=== PATIENT | male | born 1985 | race Caucasian/White ===

== ENCOUNTER 2018-06-23 09:29 | Emergency (ER) | payer BC ==
[2018-06-23] MEDS ORDERED: Doxycycline 100 MG Cap PO ONE (10:10)
--- NOTE | 2018-06-23 10:11 | EDM.PDOC ---
ED HPI GENERAL MEDICAL PROBLEM - General Chief Complaint: Skin Complaint Stated Complaint: INFECTED TATTOO Time Seen by Provider: 06/23/18 09:55 Source of Information: Reports: Patient, RN Notes Reviewed - History of Present Illness INITIAL COMMENTS - FREE TEXT/NARRATIVE: 32-year-old male comes in with concern about infection of recently acquired tattoo. He had tattoo placed on the left forearm and distal upper arm 10 days ago. Evening there was some pus draining from a small area left arm just above the elbow and then also some crusting of an area left mid dorsal forearm. No fever chills. No further drainage this morning. - Related Data Allergies Allergy/AdvReac Type Severity Reaction Status Date / Time Penicillins Allergy Anaphylactic Verified 06/23/18 09:40 Shock Home Meds: Home Meds Doxycycline [Vibramycin] 100 mg IV Q12H #20 vial 06/23/18 [Rx] Mupirocin Oint [Bactroban Oint] 22 gm .XX BID #1 tube 06/23/18 [Rx] Past Medical History - Past Surgical History Other Musculoskeletal Surgeries/Procedures:: r hand surgery, lumbar surgery Social & Family History - Tobacco Use Smoking Status *Q: Never Smoker Second Hand Smoke Exposure: No - Caffeine Use Caffeine Use: Reports: None ED ROS GENERAL - Review of Systems Review Of Systems: See Below Constitutional: Denies: Fever, Chills HEENT: Reports: No Symptoms Respiratory: Reports: No Symptoms Cardiovascular: Reports: No Symptoms GI/Abdominal: Denies: Nausea, Vomiting Musculoskeletal: Reports: Other (No major discomfort left arm or forearm) Skin: Reports: Erythema (Mild localized left forearm) ED EXAM, SKIN/RASH Exam: See Below General Appearance: Alert, No Apparent Distress Throat/Mouth: Normal Inspection Head: No: Facial Swelling Neck: Supple Respiratory/Chest: No Respiratory Distress, Lungs Clear Skin: Warm, Dry, Tattoo(s) (Large tattoo left forearm and also distal left upper arm. There is an area of erythema distal left upper arm and also area of erythema left mid dorsal forearm, no drainage at this time. Very mild localized tenderness.) Course - Vital Signs Last Recorded V/S: Last Vital Signs Temp 98.0 F 06/23/18 09:35 Pulse 86 06/23/18 09:35 Resp 15 06/23/18 09:35 BP 148/75 H 06/23/18 09:35 Pulse Ox 100 06/23/18 09:35 - Orders/Labs/Meds Meds: Medications Discontinued Medications Generic Name Dose Route Start Last Admin Trade Name Roxanne PRN Reason Stop Dose Admin Doxycycline Hyclate 100 mg 06/23/18 10:10 06/23/18 10:13 Vibramycin PO 06/23/18 10:11 100 mg ONETIME ONE Administration Departure - Departure Time of Disposition: 22:00 Disposition: Home, Self-Care 01 Condition: Fair Clinical Impression: Cellulitis Qualifiers: Site of cellulitis: extremity Site of cellulitis of extremity: upper extremity Laterality: left Qualified Code(s): L03.114 - Cellulitis of left upper limb - Discharge Information Prescriptions: Doxycycline [Vibramycin] 100 mg IV Q12H #20 vial Mupirocin Oint [Bactroban Oint] 22 gm .XX BID #1 tube Instructions: Cellulitis, Adult, [id number] Referrals: PCP,None [Primary Care Provider] - Forms: ED Department Discharge Additional Instructions: Doxycycline antibiotic 100 mg twice daily for 10 days, Bactroban ointment to affected areas of left arm twice daily until symptoms of infection resolving. Follow-up clinic as needed.
== END 2018-06-23 10:31 | disposition home or self-care (01) ==
LOC: JD.ED 09:29
DX: L03.114 Cellulitis of left upper limb (principal); Z88.0 Allergy status to penicillin
CPT/HCPCS: 99283; A9270

== ENCOUNTER 2019-11-29 11:06 | Emergency (ER) | payer OTHER, BC ==
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
--- NOTE | 2019-11-29 12:23 | CT ---
CT cervical spine Technique: Multiple axial sections through the cervical spine were obtained from above C1 inferiorly to the bottom of T2. Reconstructed coronal and sagittal images were obtained. Comparison: No prior cervical spine imaging is available. Findings: Minimal anterior and posterior osteophytes are noted at C5-C6. Minimal anterior disc space narrowing at C5-C6. Other disc spaces are preserved. Vertebral body heights are maintained. No fracture is seen. No abnormal subluxation is seen. No bony central or bony neural foraminal stenosis is seen. Impression: 1. Minimal degenerative change at C5-C6. 2. Nothing acute is appreciated on CT study of the cervical spine. Diagnostic code #2 Study was dictated in MDT
== END 2019-11-29 13:29 | disposition home or self-care (01) ==
LOC: JD.ED 11:06
DX: S16.1XXA Strain of muscle, fascia and tendon at neck level, initial encounter (principal); S80.212A Abrasion, left knee, initial encounter; S60.415A Abrasion of left ring finger, initial encounter; S00.81XA Abrasion of other part of head, initial encounter; S00.10XA Contusion of unspecified eyelid and periocular area, initial encounter; Z88.0 Allergy status to penicillin; Z79.899 Other long term (current) drug therapy; V53.6XXA Passenger in pick-up truck or van injured in collision with car, pick-up truck or van in traffic accident, initial encounter
CPT/HCPCS: 72125; 72125-26; 99282; 99284-25